=== PATIENT | female | born 1945 | race Caucasian/White ===

== ENCOUNTER 2019-03-02 20:03 | Emergency (ER) | payer OTHER ==
[~2019-03-02] VITALS: Ht 152.4 cm; Wt 67.1 kg
[~2019-03-02 20:03] MED LIST: INTESTINEX1 CAP PO; KAOPECTATE262 MG/15 PO; PANTOPRAZOLE SO40 MG PO; SYNTHROID50 MCG PO; ZOCOR40 MG PO
[2019-03-02] MEDS ORDERED: TELMISARTAN40 MG PO (20:31)
[2019-03-02] MEDS ORDERED: PROAIR HFA8.5 GM IH (20:33)
== END 2019-03-02 22:40 | disposition home or self-care (01) ==
LOC: ER 20:03
DX: J40 Bronchitis, not specified as acute or chronic (principal)